=== PATIENT | male | born 1995 | race Caucasian/White ===

== ENCOUNTER 2020-09-20 04:24 | Emergency (ER) | payer BC ==
[2020-09-20] MEDS ORDERED: Sodium Chloride 0.9% 10 ML Syringe FLUSH PRN (05:04)
[2020-09-20] MEDS ORDERED: Ondansetron 4 MG/2 ML SDV IVPUSH ONE (05:06)
[2020-09-20] MEDS ORDERED: Ketorolac 30 MG/ML SDV IVPUSH ONE (05:06)
[2020-09-20] MEDS ORDERED: Lactated Ringers 1,000 ML IV SCH (05:15)
--- NOTE | 2020-09-20 05:15 | EDM.PDOC ---
ED HPI GENERAL MEDICAL PROBLEM - General Chief Complaint: Flank Pain Stated Complaint: LEFT ABD PAIN Time Seen by Provider: 09/20/20 05:04 Source of Information: Reports: Patient, RN Notes Reviewed History Limitations: Reports: No Limitations - History of Present Illness INITIAL COMMENTS - FREE TEXT/NARRATIVE: 25-year-old gentleman presents emergency department day complaint of left flank pain, he states that it came on suddenly awoken from sleep he does have a history of nephrolithiasis however this does feel different than prior stones. Does have nausea and vomiting Left Flank Pain Score (Numeric/FACES): 8 - Related Data Allergies Allergy/AdvReac Type Severity Reaction Status Date / Time olmedo Allergy Cannot Verified 09/20/20 05:04 Remember Home Meds: Home Meds Ketorolac [Toradol] 10 mg PO TID PRN #20 tab 09/20/20 [Rx] Tamsulosin HCl [Flomax] 0.4 mg PO DAILY #10 cap.er.24h 09/20/20 [Rx] Past Medical History Genitourinary History: Reports: Renal Calculus Social & Family History - Tobacco Use Tobacco Use Status *Q: Never Tobacco User - Caffeine Use Caffeine Use: Reports: Coffee - Recreational Drug Use Recreational Drug Use: No ED ROS GENERAL - Review of Systems Review Of Systems: See Below Constitutional: Reports: No Symptoms Respiratory: Reports: No Symptoms Cardiovascular: Reports: No Symptoms GI/Abdominal: Reports: Abdominal Pain, Nausea, Vomiting : Reports: Flank Pain ED EXAM, GI/ABD - Physical Exam Exam: See Below Exam Limited By: No Limitations General Appearance: Alert, Mild Distress Respiratory/Chest: No Respiratory Distress, Lungs Clear, Normal Breath Sounds, No Accessory Muscle Use, Chest Non-Tender Cardiovascular: Regular Rate, Rhythm, No Murmur GI/Abdominal Exam: Soft, Tender (Tender along the left flank) Course - Vital Signs Last Recorded V/S: Last Vital Signs Temp Pulse 78 09/20/20 05:05 Resp 22 H 09/20/20 05:05 BP 140/95 H 09/20/20 05:05 Pulse Ox 100 09/20/20 05:05 - Orders/Labs/Meds Orders: Active Orders 24 hr Category Date Time Status Peripheral IV Care [RC] . DIRECTED Care 09/20/20 05:04 Active Lactated Ringers [Ringers, Lactated] 1,000 ml Med 09/20/20 05:15 Active IV ASDIRECTED Sodium Chloride 0.9% [Saline Flush] Med 09/20/20 05:04 Active 10 ml FLUSH ASDIRECTED PRN Peripheral IV Insertion Adult [OM.PC] Urgent Oth 09/20/20 05:04 Ordered Medication Orders Lactated Ringer's (Ringers, Lactated) 1,000 mls @ 999 mls/hr IV ASDIRECTED DONNA Last Admin: 09/20/20 05:18 Dose: 999 mls/hr Documented by: AUGUSTIN Sodium Chloride (Sodium Chloride 0.9% 10 Ml Syringe) 10 ml FLUSH ASDIRECTED PRN PRN Reason: Keep Vein Open Last Admin: 09/20/20 05:18 Dose: 10 ml Documented by: AUGUSTIN Labs: Laboratory Tests 09/20/20 09/20/20 09/20/20 Range/Units 04:55 04:55 04:55 WBC 7.8 (4.5-11.0) K/uL RBC 5.05 (4.30-5.90) M/uL Hgb 15.0 (12.0-15.0) g/dL Hct 44.1 (40.0-54.0) % MCV 87 (80-98) fL MCH 30 (27-31) pg MCHC 34 (32-36) % Plt Count 276 (150-400) K/uL Neut % (Auto) 50.6 (36-66) % Lymph % (Auto) 38.2 (24-44) % Stearns % (Auto) 9.1 H (2-6) % Eos % (Auto) 1.8 L (2-4) % Baso % (Auto) 0.3 (0-1) % Sodium 143 (140-148) mmol/L Potassium 4.0 (3.6-5.2) mmol/L Chloride 107 (100-108) mmol/L Carbon Dioxide 25 (21-32) mmol/L Anion Gap 10.9 (5.0-14.0) mmol/L BUN 21 H (7-18) mg/dL Creatinine 1.1 (0.8-1.3) mg/dL Est Cr Clr Drug Dosing 111.70 mL/min Estimated GFR (MDRD) > 60 (>60) Glucose 116 H (74-106) mg/dL Lactic Acid 1.1 (0.4-2.0) mmol/L Calcium 8.5 (8.5-10.1) mg/dL Total Bilirubin 0.4 (0.2-1.0) mg/dL AST 21 (15-37) U/L ALT 31 (12-78) U/L Alkaline Phosphatase 76 (46-116) U/L Total Protein 7.0 (6.4-8.2) g/dL Albumin 3.9 (3.4-5.0) g/dL Globulin 3.1 (2.3-3.5) g/dL Albumin/Globulin Ratio 1.3 (1.2-2.2) Lipase 78 (73-393) U/L Urine Color (YELLOW) Urine Appearance (CLEAR) Urine pH (5.0-8.0) Ur Specific Mercer (1.008-1.030) Urine Protein (NEGATIVE) mg/dL Urine Glucose (UA) (NEGATIVE) mg/dL Urine Ketones (NEGATIVE) mg/dL Urine Occult Blood (NEGATIVE) Urine Nitrite (NEGATIVE) Urine Bilirubin (NEGATIVE) Urine Urobilinogen (0.2-1.0) EU/dL Ur Leukocyte Esterase (NEGATIVE) Urine RBC (0-5) Urine WBC (0-5) Ur Epithelial Cells Amorphous Sediment Urine Bacteria Urine Mucus 09/20/20 Range/Units 05:50 WBC (4.5-11.0) K/uL RBC (4.30-5.90) M/uL Hgb (12.0-15.0) g/dL Hct (40.0-54.0) % MCV (80-98) fL MCH (27-31) pg MCHC (32-36) % Plt Count (150-400) K/uL Neut % (Auto) (36-66) % Lymph % (Auto) (24-44) % Stearns % (Auto) (2-6) % Eos % (Auto) (2-4) % Baso % (Auto) (0-1) % Sodium (140-148) mmol/L Potassium (3.6-5.2) mmol/L Chloride (100-108) mmol/L Carbon Dioxide (21-32) mmol/L Anion Gap (5.0-14.0) mmol/L BUN (7-18) mg/dL Creatinine (0.8-1.3) mg/dL Est Cr Clr Drug Dosing mL/min Estimated GFR (MDRD) (>60) Glucose (74-106) mg/dL Lactic Acid (0.4-2.0) mmol/L Calcium (8.5-10.1) mg/dL Total Bilirubin (0.2-1.0) mg/dL AST (15-37) U/L ALT (12-78) U/L Alkaline Phosphatase (46-116) U/L Total Protein (6.4-8.2) g/dL Albumin (3.4-5.0) g/dL Globulin (2.3-3.5) g/dL Albumin/Globulin Ratio (1.2-2.2) Lipase (73-393) U/L Urine Color Yellow (YELLOW) Urine Appearance Clear (CLEAR) Urine pH 7.0 (5.0-8.0) Ur Specific Mercer >= 1.030 (1.008-1.030) Urine Protein Negative (NEGATIVE) mg/dL Urine Glucose (UA) Negative (NEGATIVE) mg/dL Urine Ketones Negative (NEGATIVE) mg/dL Urine Occult Blood Trace-lysed H (NEGATIVE) Urine Nitrite Negative (NEGATIVE) Urine Bilirubin Negative (NEGATIVE) Urine Urobilinogen 1.0 (0.2-1.0) EU/dL Ur Leukocyte Esterase Negative (NEGATIVE) Urine RBC 0-5 (0-5) Urine WBC Not seen (0-5) Ur Epithelial Cells Not seen Amorphous Sediment Few Urine Bacteria Rare Urine Mucus Not seen Meds: Medications Generic Name Dose Route Start Last Admin Trade Name Graysonq PRN Reason Stop Dose Admin Lactated Ringer's 1,000 mls @ 999 mls/hr 09/20/20 05:15 09/20/20 05:18 Ringers, Lactated IV 999 mls/hr ASDIRECTED DONNA Administration Sodium Chloride 10 ml 09/20/20 05:04 09/20/20 05:18 Sodium Chloride 0.9% 10 Ml Syringe FLUSH 10 ml ASDIRECTED PRN Administration Keep Vein Open Discontinued Medications Generic Name Dose Route Start Last Admin Trade Name Freq PRN Reason Stop Dose Admin Ketorolac Tromethamine 30 mg 09/20/20 05:06 09/20/20 05:16 Ketorolac 30 Mg/Ml Sdv IVPUSH 09/20/20 05:07 30 mg ONETIME ONE Administration Ondansetron HCl 4 mg 09/20/20 05:06 09/20/20 05:15 Ondansetron 4 Mg/2 Ml Sdv IVPUSH 09/20/20 05:07 4 mg ONETIME ONE Administration Departure - Departure Time of Disposition: 06:46 Disposition: Home, Self-Care 01 Condition: Fair Clinical Impression: Nephrolithiasis - Discharge Information Prescriptions: Tamsulosin HCl [Flomax] 0.4 mg PO DAILY #10 cap.er.24h Ketorolac [Toradol] 10 mg PO TID PRN #20 tab PRN Reason: Pain Instructions: Kidney Stones, [id number] Referrals: PCP,None [Primary Care Provider] - Forms: ED Department Discharge Additional Instructions: Use ketorolac as needed for pain control, use Flomax to help pass urine and the stone with this daily, please followup with your primary care provider in 3-5 days if not better, please call return to the emergency department with worsening of symptoms. Sepsis Event Note (ED) - Evaluation Sepsis Screening Result: No Definite Risk - Focused Exam Vital Signs: Vital Signs Pulse Resp BP Pulse Ox 09/20/20 05:05 78 22 H 140/95 H 100 - My Orders Last 24 Hours: My Active Orders 09/20/20 05:04 Peripheral IV Care [RC] . DIRECTED Sodium Chloride 0.9% [Saline Flush] 10 ml FLUSH ASDIRECTED PRN Peripheral IV Insertion Adult [OM.PC] Urgent 09/20/20 05:15 Lactated Ringers [Ringers, Lactated] 1,000 ml IV ASDIRECTED - Assessment/Plan Last 24 Hours: My Active Orders 09/20/20 05:04 Peripheral IV Care [RC] . DIRECTED Sodium Chloride 0.9% [Saline Flush] 10 ml FLUSH ASDIRECTED PRN Peripheral IV Insertion Adult [OM.PC] Urgent 09/20/20 05:15 Lactated Ringers [Ringers, Lactated] 1,000 ml IV ASDIRECTED Plan: Assessment Acuity = acute Site and laterality = 2 mm stone left ureter Etiology = unknown Manifestations = none Location of injury = Home Lab values = CBC CMP urinalysis unremarkable CT scan describes stone above Plan Good relief with Toradol prescription written for ketorolac 10 mg 1 tab p.o. 3 times daily as needed total #20 and Flomax 0.4 mg 1 tablet daily total #10 both medications faxed to [facility] pharmacy follow-up primary care 3 to 5 days if not better This note was dictated using [employer] voice recognition software please call with any questions on syntax or grammar.
--- NOTE | 2020-09-20 06:31 | CRLCT ---
For Patients: As a result of the Century Cures Act, medical imaging exams and procedure reports are released immediately into your electronic medical record. You may view this report before your referring provider. If you have questions, please contact your health care provider. Indication: Left flank pain Technique: Nonenhanced axial CT imaging through the abdomen and pelvis. Sagittal and coronal reconstructions are provided. Comparison: None Findings: There is a 2 mm stone at the left ureterovesical junction, without significant hydroureteronephrosis. There is mild left renal edema. No additional renal stones are seen on the left. Two punctate stones are noted in the right kidney. There is unremarkable noncontrast appearance of the liver, gallbladder, spleen, pancreas, and adrenal glands. There is no abdominal lymphadenopathy. There is normal caliber of the abdominal aorta. The stomach and duodenum are unremarkable. There are no abnormally distended small bowel loops. The appendix is noninflamed. There is no colonic wall thickening or mesenteric edema. The osseous structures are unremarkable. The included lung bases are clear. Impression: 1. A 2 mm stone at the left ureterovesical junction. Mild left renal edema without significant hydronephrosis. 2. Additional punctate nonobstructive right renal stones. Please note that all CT scans at this facility use dose modulation, iterative reconstruction, and/or weight-based dosing when appropriate to reduce radiation dose to as low as reasonably achievable. Dictated by Teddy Aviles MD @ 09/20/2020 6:30:[address] Teddy Aviles @ Sep 20 2020 6:30AM
== END 2020-09-20 07:00 | disposition home or self-care (01) ==
LOC: JP.ED 04:24
DX: N20.0 Calculus of kidney (principal); Z91.018 Allergy to other foods
CPT/HCPCS: 36415; 74176; 80053; 81001; 83605; 83690; 85025; 96374; 96375; 99284; J1885; J2405; J7120